=== PATIENT | male | born 1990 | race Caucasian/White ===

== ENCOUNTER 2022-04-11 07:35 | Emergency (ER) | payer BC, SELFPAY ==
[2022-04-11 07:40] VITALS: BP 116/71; PULSE 70; RESP 16; TEMP 36.6; O2SAT 96
--- NOTE | 2022-04-11 08:21 | ED_ITS ---
HPI - Eye Problem General Chief complaint: Eye Problems Stated complaint: rt eye swelling Time Seen by Provider: 04/11/22 08:17 History of Present Illness HPI Narrative: Pt presents with swelling to right eyebrow today. Pt denies itching or redness. Pt denies any issues with eye itself and vision is fine. Related Data Allergies Allergy/AdvReac Type Severity Reaction Status Date / Time No Known Allergies Allergy Verified 04/11/22 07:42 Review of Systems Review of Systems: All systems reviewed & are unremarkable except as noted in HPI and below PMFSH Social History Social History Smoking status: Heavy tobacco smoker Alcohol intake: never Exam Const: General: healthy appearing Nutritional Appearance: well nourished Orientation/consciousness: patient oriented x3 Limitations: no limitations HENMT: Face and sinus: normal facial exam (swelling to right eyebrow with small nodule in area but no abscess) Mouth: Yes Normal oral and palatal mucosa present Eyes: Conjunctivae: conjunctivae normal Pupils: Equal, round and reactive pupils present EOM: EOMs intact bilaterally Direct Ophthalmoscopy: no photophobia Neck: Neck: normal visual inspection Resp: Effort & Inspection: normal respiratory effort Cardio: Rate: regular rate Rhythm: regular rhythm Skin: General skin exam: normal color Rashes: no rashes Wounds: no wounds Neuro: General: patient oriented x3, moves all extremities, no meningeal signs and no focal motor deficits Cranial nerves: Yes Nystagmus not present Speech: normal speech Gait exam (Neuro): Normal gait present Extrem: General: normal to inspection and no clubbing, cyanosis or edema Psych: Mental Status: mental status grossly normal Affect: normal affect Attitude: cooperative Course Vital Signs Vital signs: Vital Signs Temperature 97.9 F 04/11/22 07:40 Pulse Rate 70 04/11/22 07:40 Respiratory Rate 16 04/11/22 07:40 Blood Pressure 116/71 04/11/22 07:40 Pulse Oximetry 96 04/11/22 07:40 Oxygen Delivery Room Air 04/11/22 07:40 Temperature 97.9 F 04/11/22 07:40 Pulse Rate 70 04/11/22 07:40 Respiratory Rate 16 04/11/22 07:40 Blood Pressure 116/71 04/11/22 07:40 Pulse Oximetry 96 04/11/22 07:40 Oxygen Delivery Room Air 04/11/22 07:40 Discharge Plan Discharge Clinical Impression: Folliculitis Patient Disposition: Home, Self-Care Condition: Stable Instructions: Antibiotic Form, Folliculitis (ED) Prescriptions: New sulfamethoxazole-trimethoprim [Bactrim DS] 800-160 mg tablet 1 tablet PO Q12H Qty: 20 0RF Follow-up/Referrals: Alexis Rico DO [Physician] - PHYSICIAN,[employer] [Primary Care Provider] -
== END 2022-04-11 08:39 | disposition home or self-care (01) ==
LOC: ANHED 08:35
PROVIDERS: Emergency Provider Emergency Medicine
DX: L73.9 Follicular disorder, unspecified (principal); F17.210 Nicotine dependence, cigarettes, uncomplicated
CPT/HCPCS: 99283